=== PATIENT | male | born 2000 | race Two or more races ===

== ENCOUNTER 2022-02-21 23:07 | Emergency (ER) | payer SELFPAY ==
[2022-02-21 23:24] VITALS: BP 139/85; BMI 31.4
[2022-02-21] MEDS ORDERED: ONDANSETRON 4 MG TABLET PO ONE (23:59)
[2022-02-21] MEDS ORDERED: ACETAMINOPHEN 325 MG TABLET (FP) PO ONE (23:59)
[2022-02-21] MEDS ORDERED: BENZOCAINE/MENTH/CETYLPYRD CL 1 EACH LOZENGE MM PRN (23:59)
[2022-02-21] MEDS ORDERED: ONDANSETRON *ODT* 4 MG TABLET ONE (23:59)
[2022-02-22] MEDS ORDERED: BENZOCAINE/MENTH/CETYLPYRD CL 1 EACH LOZENGE MM ONE
[2022-02-22] MEDS ORDERED: ACETAMINOPHEN 325 MG TABLET (FP) ONE
[2022-02-22] MEDS ORDERED: PENICILLIN G BENZATHINE 1,200,000 UNIT/2 ML PFS IM ONE ×2 (01:02→01:10)
[2022-02-22 01:48] VITALS: PULSE 84; TEMP 99
== END 2022-02-22 02:14 | disposition home or self-care (01) ==
LOC: JER 23:07
DX: R50.9 Fever, unspecified (principal); J02.9 Acute pharyngitis, unspecified
CPT/HCPCS: 0241U-QW; 87651; 99284-25